=== PATIENT | female | born 1965 | race Caucasian/White ===

== ENCOUNTER → 2017-03-16 09:23 | Outpatient (CLI) | payer BC ==
[2014-01-01 07:25] VITALS: BMI 39.4
[~2017-03-16 09:23] MED LIST: ACETAMINOPHEN500 M1 PO; FERROUS SULFAT325 MG PO; KLOR-CON 1010 MEQ PO; LASIX20 MG PO; PRILOSEC20 MG PO; PRINZIDE 10/12.1 TAB PO
== END | disposition home or self-care (01) ==
LOC: D.CT 02-16 16:00
DX: K80.80 Other cholelithiasis without obstruction (principal)

== ENCOUNTER → 2017-03-17 14:48 | Outpatient (CLI) | payer BC ==
[2014-01-01 07:25] VITALS: BMI 39.4
[2017-03-17 15:13] LABS: BASOPHILS 0.4 % (0-2); EOSINOPHILS 1.4 % (0-7); HEMATOCRIT 38.3 % (36.0-48.0); HEMOGLOBIN 12.7 g/dL (12-16); IMMATURE GRANULOCYTES 0.1 % (0-5); LYMPHOCYTES 32.2 % (15-50); MCH 28.9 pg (26.0-34.0); MCHC 33.2 g/dL (31.0-37.0); MEAN PLATELET VOLUME 10.1 fL (7.4-10.4); MONOCYTES 7.2 % (2-11); NEUTROPHILS 58.7 % (40-80); PLATELET COUNT 251 10x3/uL (130-400); RDW 12.6 % (11.5-14.5); WBC 7.4 10x3/uL (4.8-10.8)
[2017-03-17 15:36] LABS: ALBUMIN 3.7 g/dL (3.4-5.0); ANION GAP 11.2 mmol/L (8-16); BILIRUBIN - TOTAL 0.3 mg/dL (0.2-1.3); CALCIUM 9.3 mg/dL (8.5-10.1); CARBON DIOXIDE 30.9 mmol/L (21.0-32.0); CREATININE - SERUM 0.9 mg/dL (0.6-1.3); POTASSIUM - SERUM 3.1 mmol/L (3.5-5.1)
== END | disposition home or self-care (01) ==
LOC: D.LAB 14:48
PROVIDERS: Internal Medicine Gastroenterology
DX: K80.80 Other cholelithiasis without obstruction (principal); K80.50 Calculus of bile duct without cholangitis or cholecystitis without obstruction